=== PATIENT | female | born 1990 | race Caucasian/White ===

== ENCOUNTER 2021-10-09 18:53 | Inpatient (IN) | payer MEDICAID, SELFPAY ==
[2021-10-09 18:53] VITALS: BP 93/64; PULSE 101; RESP 18; TEMP 36.6; O2SAT 98
[2021-10-09 19:01] VITALS: BMI 21.5
[2021-10-09] MEDS: quetiapine 300 mg Tablet PO (20:31)
[2021-10-09] MEDS: trazodone 50 mg Tablet PO (21:54)
--- NOTE | 2021-10-09 21:55 | PC.NURSE ---
PT REQUESTED SLEEP MED, TRAZODONE 50MG PO GIVEN.
[2021-10-09 22:00] VITALS: BP 93/62; PULSE 93; RESP 18; TEMP 36.8; O2SAT 100
--- NOTE | 2021-10-09 23:00 | PC.NURSE ---
PT RESTING QUIETLY WITH BOTH EYES CLOSED.
[2021-10-10] MEDS: hyDROXYzine 25 mg Capsule 50 MG PO ×4 (03:48→20:56)
--- NOTE | 2021-10-10 03:50 | PC.NURSE ---
PT REQUESTING MED FOR ANXIETY, VISTARIL 50MG PO GIVEN.
--- NOTE | 2021-10-10 04:30 | PC.NURSE ---
PT RESTING QUIETLY WITH BOTH EYES CLOSED.
[2021-10-10 06:00] VITALS: BP 109/65; PULSE 93; RESP 18; TEMP 36.9; O2SAT 99
--- NOTE | 2021-10-10 07:49 | PC.NURSE ---
Reviewed admission paperwork with patient. Attempt to complete admission assessment without success due to patient unable to stay alert or awake. VS taken and recorded. Earrings removed and placed with patients belongings. No acute distress observed.
[2021-10-10] MEDS: amitriptyline 25 mg Tablet 50 MG PO (08:31)
[2021-10-10] MEDS: nicotine 21 mg Patch 1 PATCH TRANSDERMA (09:42)
[2021-10-10] MEDS: OLANZapine 5 mg ODT PO ×2 (09:49→13:44)
[2021-10-10 14:00] VITALS: BP 109/74; PULSE 126; RESP 20; TEMP 36.8; O2SAT 97
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
[2021-10-10 20:24] VITALS: BP 99/64; PULSE 100; RESP 18; TEMP 36.7; O2SAT 99
[2021-10-10] MEDS: quetiapine 300 mg Tablet PO (20:56)
[2021-10-10] MEDS: trazodone 50 mg Tablet PO (20:57)
[2021-10-11 06:00] VITALS: BP 97/69; PULSE 101; RESP 20; TEMP 36.8; O2SAT 99
[2021-10-11] MEDS: hyDROXYzine 25 mg Capsule 50 MG PO ×2 (08:48→16:05)
[2021-10-11] MEDS: amitriptyline 25 mg Tablet 50 MG PO (08:48)
[2021-10-11] MEDS: OLANZapine 5 mg ODT PO (08:48)
--- NOTE | 2021-10-11 10:00 | PC.NURSE ---
Outburst While on phone patient became agitated and crying. Staff intervened and was able to calm patient with talking. Patient quickly upset again and began slamming phone. Staff again sat and spoke with patient. Patient paranoid that her family is not really her family anymore. Patient did calm. PRN medications offered. Patient did tale meds- Zydis and Vistaril at 0845. Meds appeared to initially be effective, did calm at that time.
[2021-10-11] MEDS: haloperidol 5 mg Tablet PO ×2 (11:52→16:05)
--- NOTE | 2021-10-11 12:01 | PC.NURSE ---
pt yelling, crying and walking hallways stating she wanted to go home. pt was redirected, pt was still agitated and was loudly yelling. pt given 5mg dose of PRN haldol, pt is in bed, resting quietly but still sobbing.
--- NOTE | 2021-10-11 12:55 | PC.NURSE ---
Outburst Patient anxious, agitated, and crying again at 1150. Paces in cab[place], staff unable to redirect thought process to coping skills. Returns to room and loudly crying and yelling. Patient requested medications. PRN Haldol given at that time d/t Zydis not being effective. Haldol has been somewhat effective. Calmer but does continue to easily become anxious and agitated. Staff monitoring.
--- NOTE | 2021-10-11 13:33 | PC.NURSE ---
pt quietly resting in room, roommate in room speaking to pt.
[2021-10-11 14:00] VITALS: BP 90/51; PULSE 86; RESP 20; TEMP 36.8; O2SAT 98
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
[2021-10-11 20:27] VITALS: BP 103/72; PULSE 104; RESP 17; TEMP 36.4; O2SAT 100
[2021-10-12 05:34] VITALS: BP 103/72; PULSE 104; RESP 17; TEMP 36.4; O2SAT 100
[2021-10-12] MEDS: diphenhydrAMINE 50 mg/mL SDV 1mL IM ×3 (10:05→17:46)
[2021-10-12] MEDS: OLANZapine 5 mg ODT PO (10:15)
[2021-10-12] MEDS: amitriptyline 25 mg Tablet 50 MG PO (10:15)
--- NOTE | 2021-10-12 10:23 | PC.NURSE ---
Allergic reaction At 1000 patient came to nurses station with report of thickening of her tongue. Able to stick tongue out, swallow, talk. States has had this reaction with Haldol in the past. IM Diphehydramine given to right deltoid at 1005. At 1012, reported that she felt it was worsening. Speech slurred at that time, remains able to swallow without issue, no trouble breathing. notified and approved administration of additional 50 mg Diphehydramine IM to be given. Given at 1015. Remained with staff, sat at nurses station to monitor. At 1025 patient reported symptoms had subsided. Speech clear. Returned to bed. Haldol removed from DEC, ensured Haldol listed at allergy in chart.
--- NOTE | 2021-10-12 11:31 | PC.NURSE ---
Addendum entered by Lionel Pichardo RN 10/12/21 13:25: PT STATES THAT THE MED WORKED GOOD, WILL CONTINUE TO MONITOR. Original Note: prn med pt given 5mg Zyprexa Zydis for anxiety, will continue to monitor.
[2021-10-12] MEDS: hyDROXYzine 25 mg Capsule 50 MG PO ×2 (13:06→22:01)
[2021-10-12 14:00] VITALS: BP 108/75; PULSE 110; RESP 17; TEMP 36.6; O2SAT 100
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
--- NOTE | 2021-10-12 17:46 | PC.NURSE ---
PRN MEDE PT GIVEN 50MG DIPHENHYRAMINE FOR SWOLLEN THROAT, WILL CONTINUE TO MONITOR.
[2021-10-12 20:52] VITALS: BP 124/94; PULSE 94; RESP 16; O2SAT 100
[2021-10-12] MEDS: quetiapine 300 mg Tablet PO (22:02)
[2021-10-13] MEDS: quetiapine 300 mg Tablet PO (02:56)
--- NOTE | 2021-10-13 03:07 | PC.NURSE ---
Patient received vistaril for anxiety. It was effective.
[2021-10-13 06:00] VITALS: BP 103/70; PULSE 85; RESP 18; TEMP 36.6; O2SAT 100
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
[2021-10-13] MEDS: amitriptyline 25 mg Tablet 50 MG PO (09:07)
[2021-10-13] MEDS: OLANZapine 5 mg ODT PO (10:16)
[2021-10-13 10:18] VITALS: BP 103/70; PULSE 85; RESP 18; TEMP 36.6; O2SAT 100
== END 2021-10-13 11:58 | disposition home or self-care (01) | DRG 897 ==
PROVIDERS: Admitting Provider Psychiatry & Neurology Psychiatry; Visit Provider Psychiatry & Neurology Psychiatry
DX: F15.13 Other stimulant abuse with withdrawal (principal); F12.10 Cannabis abuse, uncomplicated; F17.210 Nicotine dependence, cigarettes, uncomplicated; F43.10 Post-traumatic stress disorder, unspecified; R41.83 Borderline intellectual functioning
CPT/HCPCS: 96372; 97150; 97165; J1200